=== PATIENT | female | born 1945 | race Caucasian/White ===

== ENCOUNTER 2024-02-25 10:43 | Emergency (ER) | payer MEDICARE ==
[~2024-02-25] VITALS: Ht 162.5 cm; Wt 74.8 kg
[2024-02-25] MEDS ORDERED: IBU800 M1 PO (11:40)
[2024-02-25] MEDS ORDERED: ROSUVASTATIN CA20 MG PO (11:40)
[2024-02-25] MEDS ORDERED: NORVASC5 MG PO (11:42)
[2024-02-25] MEDS ORDERED: CALCIUM 600-VI1 EAC6 PO (11:42)
[2024-02-25] MEDS ORDERED: PRAVASTATIN SOD20 MG PO (11:43)
[2024-02-25] MEDS ORDERED: VITAMIN D250 MC1 PO (11:43)
[2024-02-25] MEDS ORDERED: VITAMIN B121000 MC3 PO (11:43)
[2024-02-25] MEDS ORDERED: TOPCARE OMEPRAZ20 MG PO (11:44)
[2024-02-25] MEDS ORDERED: OZEMPIC2 MG/0.71 SQ (11:44)
[2024-02-25] MEDS ORDERED: VITAMIN C1000 M5 PO (11:45)
[2024-02-25] MEDS ORDERED: IRON325 M1 PO (11:45)
[2024-02-25] MEDS ORDERED: FIBER TABLETS625 MG PO (11:46)
[2024-02-25] MEDS ORDERED: LOSARTAN POTASS25 M1 PO (11:47)
[2024-02-25] MEDS ORDERED: ONE-DAILY MULT1 EACH PO (11:47)
[2024-02-25] MEDS ORDERED: Acetaminophen/Oxycodone 5 MG/325 MG TABLET PO ONE (12:25)
== END 2024-02-25 14:36 | disposition home or self-care (01) ==
LOC: ED 10:43
DX: S96.912A Strain of unspecified muscle and tendon at ankle and foot level, left foot, initial encounter (principal); E11.9 Type 2 diabetes mellitus without complications; I10 Essential (primary) hypertension; X50.1XXA Overexertion from prolonged static or awkward postures, initial encounter; Y93.89 Activity, other specified; Y92.89 Other specified places as the place of occurrence of the external cause; Y99.8 Other external cause status

== ENCOUNTER → 2024-03-14 | Outpatient (CLI) | payer MEDICARE ==
[~2024-03-14] MED LIST: CALCIUM 600-VI1 EAC6 PO; FIBER TABLETS625 MG PO; IBU800 M1 PO; IRON325 M1 PO; LOSARTAN POTASS25 M1 PO; NORVASC5 MG PO; ONE-DAILY MULT1 EACH PO; OZEMPIC2 MG/0.71 SQ; PRAVASTATIN SOD20 MG PO; ROSUVASTATIN CA20 MG PO; TOPCARE OMEPRAZ20 MG PO; VITAMIN B121000 MC3 PO; VITAMIN C1000 M5 PO; VITAMIN D250 MC1 PO
== END | disposition home or self-care (01) ==
LOC: US 03-01 13:30
PROVIDERS: ATTEND Family Medicine
DX: I83.93 Asymptomatic varicose veins of bilateral lower extremities (principal); M79.89 Other specified soft tissue disorders

== ENCOUNTER → 2024-10-03 | Outpatient (CLI) | payer MEDICARE | END | disposition home or self-care (01) | LOC: ORTHO 00:26 | PROVIDERS: ATTEND Orthopaedic Surgery | DX: M19.042 Primary osteoarthritis, left hand (principal); M79.642 Pain in left hand ==